=== PATIENT | male | born 1990 | race Caucasian/White ===

== ENCOUNTER 2024-12-20 22:33 | Emergency (ER) | payer OTHER, SELFPAY ==
--- NOTE | ~2024-12-20 | XR_ITS ---
CLINICAL HISTORY: right ankle injury swelling 3 view right ankle Comparison: None provided Findings: No acute fractures or dislocations. No significant loss of joint space, osteophytes, or erosions. No radiopaque foreign body. Lateral ankle soft tissue swelling. IMPRESSION: 1. No acute fracture. This document has been electronically signed by: Heladio Do MD on 12/20/2024 23:58:17
[2024-12-20 22:48] VITALS: BP 136/88; PULSE 88; RESP 20; TEMP 36.6; O2SAT 98; BMI 31.5
[2024-12-21 01:21] VITALS: BP 139/88; PULSE 81; RESP 16; TEMP 36.8; O2SAT 97
--- NOTE | 2024-12-21 02:30 | ED_ITS ---
HPI - General Adult General Chief complaint: Extremity Injury, Lower Stated complaint: right ankle injur wants xray / swelling Time Seen by Provider: 12/21/24 01:44 Source: patient Limitations: no limitations History of Present Illness ED Provider: Caitlyn Cerna PA-C HPI narrative: 34-year-old male presents with right ankle pain. Patient states he ?rolled his ankle, then developed swelling along the lateral aspect. Pain with the ambulation, minimal flexion and extension. Related Data Allergies Allergy/AdvReac Type Severity Reaction Status Date / Time No Known Allergies Allergy Verified 12/20/24 22:48 Review of Systems Review of Systems: Yes all other systems are reviewed and are negative Constitutional: Constitutional: Denies fatigue and Denies fever(s) Musculoskeletal: Musculoskeletal: Reports arthralgias and Reports joint swelling Endocrine: Endocrine: Denies fatigue PMFSH Past Medical History Attestation statement: The following information was validated with the patient. Social History Social History Advance Directives: No Advance Directives Information Provided: Yes Do you have a plan to hurt others: No Plan Physical Exam ED Vital Signs: Vital Signs - 24 hr 12/20/24 22:48 12/21/24 01:21 Temperature 97.8 F 98.2 F Pulse Rate 88 81 Respiratory Rate 20 16 Blood Pressure 136/88 139/88 Pulse Oximetry 98 97 Oxygen Delivery Method Room Air BMI result Body Mass Index 31.5 Const Other: Alert well-appearing Orientation/consciousness: patient oriented x3 Resp Effort & Inspection: normal respiratory effort Cardio Other: Normal peripheral perfusion Skin Other: Warm dry no rash Neuro General: patient oriented x3, no focal motor deficits and CN's II-XI intact bilaterally Extrem Other: Significant swelling and developing ecchymosis over lateral aspect of the ankle on the right side Psych Other: Cooperative Medical Decision Making Medical Decision Making [facility] Narrative: 34-year-old male presents with right ankle pain. Patient states he ?rolled his ankle, then developed swelling along the lateral aspect. Pain with the ambulation, minimal flexion and extension. No chronic issues History: Per patient I have considered the following differential diagnoses: Fracture, dislocation, sprain, contusion Plan: X-ray obtained from triage there was no fracture or dislocation the patient has a sprain. We will place in a short walking boot, he has crutches at home, he can follow up with primary care as needed. I have independently reviewed the following tests: X-ray right ankle:Findings: No acute fractures or dislocations. No significant loss of joint space, osteophytes, or erosions. No radiopaque foreign body. Lateral ankle soft tissue swelling. IMPRESSION: 1. No acute fracture. Discharge Plan Discharge Clinical Impression: Ankle sprain and strain Patient Disposition: Home, Self-Care Instructions: Ankle Sprain (ED), Crutch Instructions (ED), P.R.I.C.E. Treatment (ED), Walking Boot (ED) Additional Instructions: The x-ray was negative for fracture or dislocation, you have a sprain. See home care instructions. Bear weight as tolerated, use the crutches as needed. See additional home care instructions. Follow up with primary care as needed. Stand Alone Forms: Work/School Release Print Language: Mohawk
[2024-12-21 03:38] VITALS: BP 131/92; PULSE 82; RESP 18; TEMP 36.3; O2SAT 98
[2024-12-21 03:40] VITALS: BP 131/92; PULSE 82; RESP 18; TEMP 36.3; O2SAT 98
== END 2024-12-21 03:44 | disposition home or self-care (01) ==
PROVIDERS: Emergency Provider Emergency Medicine
DX: S93.401A Sprain of unspecified ligament of right ankle, initial encounter (principal); S96.911A Strain of unspecified muscle and tendon at ankle and foot level, right foot, initial encounter; X50.1XXA Overexertion from prolonged static or awkward postures, initial encounter; M25.571 Pain in right ankle and joints of right foot; Y93.9 Activity, unspecified; Y92.9 Unspecified place or not applicable; Y99.9 Unspecified external cause status
CPT/HCPCS: 73610; 99283; 99284

== ENCOUNTER → 2024-12-20 22:34 | Outpatient (BNV) | payer OTHER, SELFPAY | PROVIDERS: Visit Provider Radiology Diagnostic Radiology | DX: R22.41 Localized swelling, mass and lump, right lower limb (principal); S99.911A Unspecified injury of right ankle, initial encounter | CPT/HCPCS: 73610 ==